=== PATIENT | male | born 1990 | race Two or more races ===

== ENCOUNTER 2018-06-13 22:09 | Emergency (ER) | payer OTHER, SELFPAY ==
[~2018-06-13] VITALS: Ht 177.8 cm; Wt 61.0 kg
[2018-06-14] MEDS ORDERED: SODIUM CHLORIDE 0.9% 1,000 ML IV ONE ×2 (01:00)
[2018-06-14 01:18] LABS: HEMATOCRIT. 42.6 % (42.0-52.0); HEMOGLOBIN. 14.5 g/dL (14.0-18.0); MEAN CORPUSCULAR VOLUME 96.9 fL (80.0-94.0); MEAN PLATELET VOLUME 9.2 fl (7.4-10.4); PLATELET 117 x1000/uL (130-400); RED CELL DISTRIBUTION WIDTH 13.6 % (11.6-14.6)
[2018-06-14 01:22] LABS: CHLORIDE 103 mEq/L (98-107)
[2018-06-14 01:25] LABS: INR 1.1; PARTIAL THROMBOPLASTIN TIME 30.9 sec (23.4-31.0); PROTHROMBIN TIME 11.3 sec (9.1-11.1)
[2018-06-14 01:31] LABS: CREATINE KINASE 207 IU/L (39-308)
[2018-06-14 02:54] LABS: PLATELET ESTIMATE SLIGHTLY DECREASED
[2018-06-14] MEDS ORDERED: ACETAMINOPHEN 325MG TABLET PO ONE (04:15)
[2018-06-14] MEDS ORDERED: IPRATROPIUM/ALBUTEROL 0.5-3(2.5)MG/3ML NEB HHN ONE ×3 (04:30)
[2018-06-14 05:55] VITALS: BP 131/71
== END 2018-06-14 06:01 | disposition home or self-care (01) ==
LOC: ER 22:09
DX: R53.81 Other malaise (principal); J45.909 Unspecified asthma, uncomplicated; F14.10 Cocaine abuse, uncomplicated; F12.10 Cannabis abuse, uncomplicated; F17.200 Nicotine dependence, unspecified, uncomplicated
CPT/HCPCS: 36415; 71045; 80053; 82550; 85025; 85610; 85730; 87804; 96360; 99284; 99406; J7030; J7620